=== PATIENT | male | born 1985 | race Caucasian/White ===

== ENCOUNTER 2020-03-04 14:36 | Emergency (ER) | payer OTHER ==
[~2020-03-04] VITALS: Ht 175.3 cm; Wt 64.9 kg
[~2020-03-04 14:36] MED LIST: CLON.1 PO; NICOTINE GUM2 MG PO; OLAN5 PO; PRAZ1 PO; ROXICODONE5 MG PO
[2020-03-04 15:19] LABS: BASOPHILS ABSOLUTE AUTO 0.04 K/mm3 (0.00-0.23); BASOPHILS PERCENT AUTO 1 % (0-2); EOSINOPHILS ABSOLUTE AUTO 0.06 K/mm3 (0.00-0.68); EOSINOPHILS PERCENT AUTO 1 % (0-6); Hematocrit 53.7 % (37.0-53.0); Hemoglobin 19.5 g/dL (13.5-17.5); IMMATURE GRAN ABSOLUTE AUTO 0.02 K/mm3 (0.00-0.10); IMMATURE GRAN PERCENT AUTO 0 % (0-1); LYMPHOCYTES ABSOLUTE AUTO 1.47 K/mm3 (0.84-5.20); LYMPHOCYTES PERCENT AUTO 22 % (21-46); MONOCYTES ABSOLUTE AUTO 0.56 K/mm3 (0.16-1.47); MONOCYTES PERCENT AUTO 8 % (4-13); Mean Corpuscular HGB 35.3 pg (26.0-34.0); Mean Corpuscular HGB Conc 36.3 g/dL (31.5-36.5); Mean Corpuscular Volume 97 fL (80-100); Mean Platelet Volume 9.4 fL (9.1-12.4); NEUTROPHILS ABSOLUTE AUTO 4.65 K/mm3 (1.96-9.15); NEUTROPHILS PERCENT AUTO 68 % (41-73); Platelet Count 214 K/mm3 (150-400); RDW Coefficient Variation 12.4 % (11.7-14.2); RDW Standard Deviation 44.5 fL (35.1-46.3); Red Blood Cell Count 5.53 M/mm3 (4.30-5.90)
[2020-03-04 15:40] LABS: Alanine Aminotransfer (ALT/SGP 152 U/L (12-78); Albumin, Blood 4.6 g/dL (3.4-5.0); Albumin/Globulin Ratio 1.4 (0.8-1.8); Alk Phos 161 U/L (50-136); Anion Gap 8 mmol/L (6-16); Aspartate Aminotrans (AST/SGOT 175 U/L (12-37); Bilirubin, Total 1.4 mg/dL (0.1-1.0); Blood Urea Nitrogen 4 mg/dL (8-24); Bun/Creatinine Ratio 6.7 (12.0-20.0); CO2, Blood 27 mmol/L (21-32); Calcium, Blood 9.7 mg/dL (8.5-10.1); Chloride, Blood 102 mmol/L (98-108); Globulin, Blood 3.4 g/dL (2.2-4.0); Glomerular Filtration Rate >60 (60-); Glucose, Blood 104 mg/dL (70-99); Potassium, Blood 3.8 mmol/L (3.5-5.5); Sodium, Blood 137 mmol/L (136-145)
[2020-03-04 16:23] LABS: Source, Urine Clean Catch
[2020-03-04 16:25] LABS: Bilirubin, Urine Neg (Neg); Blood, Urine Neg (Neg); Glucose Qualitative, Urine Neg (Neg); Ketones, Urine Neg (Neg); Leukocyte Esterase, Urine Neg (Neg); Nitrite, Urine Neg (Neg); Protein, Urine Neg (Neg); Urobilinogen, Urine NORM (Normal)
[2020-03-04 16:34] LABS: Appearance, Urine Clear (Clear); Color, Urine Yellow (P-Yellow)
[2020-03-04] MEDS ORDERED: ONDA4ODT MM (19:21)
[2020-03-04] MEDS ORDERED: Roxicodone5 MG PO (19:21)
== END 2020-03-04 19:28 | disposition home or self-care (01) ==
LOC: ER 14:36
PROVIDERS: Physician Assistant
DX: K85.90 Acute pancreatitis without necrosis or infection, unspecified (principal); F17.200 Nicotine dependence, unspecified, uncomplicated
CPT/HCPCS: 36415; 80053; 81003; 83690; 85025; 99284

== ENCOUNTER 2020-09-22 01:05 | Emergency (ER) | payer OTHER ==
[~2020-09-22] VITALS: Ht 167.6 cm; Wt 68.0 kg
[~2020-09-22 01:05] MED LIST changes: +ONDA4ODT MM; +Roxicodone5 MG PO
[2020-09-22 01:57] LABS: Alanine Aminotransfer (ALT/SGP 34 U/L (12-78); Albumin, Blood 4.1 g/dL (3.4-5.0); Alk Phos 144 U/L (50-136); Anion Gap 15 mmol/L (6-16); Aspartate Aminotrans (AST/SGOT 30 U/L (12-37); Bilirubin, Total 2.1 mg/dL (0.1-1.0); Blood Urea Nitrogen 50 mg/dL (8-24); Bun/Creatinine Ratio 33.1 (12.0-20.0); CO2, Blood 24 mmol/L (21-32); Calcium, Blood 9.3 mg/dL (8.5-10.1); Chloride, Blood 83 mmol/L (98-108); Creatinine, Blood 1.51 mg/dL (0.60-1.20); Ethanol (Alcohol), Blood, Med <3 mg/dL; Globulin, Blood 4.1 g/dL (2.2-4.0); Glomerular Filtration Rate 56 (60-); Glucose, Blood 97 mg/dL (70-99); Potassium, Blood 2.8 mmol/L (3.5-5.5); Sodium, Blood 122 mmol/L (136-145); Total Protein, Blood 8.2 g/dL (6.4-8.2)
[2020-09-22 02:10] LABS: BASOPHILS PERCENT AUTO 0 % (0-2); LYMPHOCYTES ABSOLUTE AUTO 0.97 K/mm3 (0.84-5.20); RDW Coefficient Variation 12.1 % (11.7-14.2); RDW Standard Deviation 42.2 fL (35.1-46.3)
[2020-09-22 02:11] LABS: BASOPHILS ABSOLUTE AUTO 0.04 K/mm3 (0.00-0.23); EOSINOPHILS ABSOLUTE AUTO 0.05 K/mm3 (0.00-0.68); EOSINOPHILS PERCENT AUTO 0 % (0-6); Hematocrit 46.3 % (37.0-53.0); Hemoglobin 17.4 g/dL (13.5-17.5); IMMATURE GRAN ABSOLUTE AUTO 0.05 K/mm3 (0.00-0.10); IMMATURE GRAN PERCENT AUTO 0 % (0-1); LYMPHOCYTES PERCENT AUTO 8 % (21-46); MONOCYTES ABSOLUTE AUTO 1.45 K/mm3 (0.16-1.47); MONOCYTES PERCENT AUTO 13 % (4-13); Mean Corpuscular HGB 35.2 pg (26.0-34.0); Mean Corpuscular HGB Conc 37.6 g/dL (31.5-36.5); Mean Corpuscular Volume 94 fL (80-100); Mean Platelet Volume 9.9 fL (9.1-12.4); NEUTROPHILS ABSOLUTE AUTO 8.93 K/mm3 (1.96-9.15); NEUTROPHILS PERCENT AUTO 78 % (41-73); Platelet Count 187 K/mm3 (150-400); Red Blood Cell Count 4.94 M/mm3 (4.30-5.90); White Blood Cell Count 11.49 K/mm3 (4.00-11.30)
[2020-09-22 02:22] LABS: Source, Urine Voided
[2020-09-22 02:33] LABS: Bilirubin, Urine Neg (Neg); Blood, Urine 1+ (Neg); Glucose Qualitative, Urine Neg (Neg); Ketones, Urine 2+ (Neg); Leukocyte Esterase, Urine 1+ (Neg); Nitrite, Urine Neg (Neg); Protein, Urine 2+ (Neg); Urobilinogen, Urine 1+ (Normal)
[2020-09-22 02:47] LABS: U Amphetamine Screen Not Detected; U Barbituate Screen Not Detected; U Benzodiazapine Screen Not Detected; U Buprenorphine Screen Not Detected; U Cannabinoids Screen DETECTED; U Cocaine Screen Not Detected; U Methadone Screen Not Detected; U Methamphetamine Screen Not Detected; U Opiates Screen Not Detected; U Oxycodone Screen DETECTED; U Phencyclidine Screen Not Detected; U Propoxyphene Screen Not Detected
[2020-09-22 02:49] LABS: Appearance, Urine Hazy (Clear); Color, Urine Yellow (P-Yellow)
[2020-09-22 02:51] LABS: Amorphous Mod (0-Heavy); Bacteria Few /hpf; Hyaline Casts 50-100 /lpf (0-2); Red Blood Cells, Urine Rare /hpf (0-2); Squamous Epithelial Cells Rare /hpf (Few)
[2020-09-22] MEDS ORDERED: Ondansetron Odt8 MG MM (03:35)
[2020-09-22] MEDS ORDERED: Protonix40 MG PO (03:35)
== END 2020-09-22 04:00 | disposition home or self-care (01) ==
LOC: ER 01:05
PROVIDERS: Emergency Medicine
DX: K85.20 Alcohol induced acute pancreatitis without necrosis or infection (principal); E87.1 Hypo-osmolality and hyponatremia; F17.200 Nicotine dependence, unspecified, uncomplicated; Z79.899 Other long term (current) drug therapy
CPT/HCPCS: 76705; 80053; 81001; 83605; 83690; 85025; 87086; 93005; 93010; 96374; 96375; 99284-25; C9113; G0480; J1885; J2405; J7030

== ENCOUNTER 2021-11-06 12:19 | Inpatient (IN) | payer OTHER ==
[~2021-11-06] VITALS: Ht 172.7 cm; Wt 57.5 kg
[~2021-11-06 12:19] MED LIST changes: +Ondansetron Odt8 MG MM; +Protonix40 MG PO
[2021-11-06 13:41] LABS: Bilirubin, Total 1.7 mg/dL (0.1-1.0); Bun/Creatinine Ratio 13.7 (12.0-20.0); Calcium, Blood 9.5 mg/dL (8.5-10.1); Creatinine, Blood 3.28 mg/dL (0.60-1.20); Potassium, Blood 4.1 mmol/L (3.5-5.5)
[2021-11-06 13:42] LABS: BASOPHILS ABSOLUTE AUTO 0.05 K/mm3 (0.00-0.23); BASOPHILS PERCENT AUTO 0 % (0-2); EOSINOPHILS ABSOLUTE AUTO 0.01 K/mm3 (0.00-0.68); EOSINOPHILS PERCENT AUTO 0 % (0-6); Hematocrit 48.7 % (37.0-53.0); IMMATURE GRAN ABSOLUTE AUTO 0.16 K/mm3 (0.00-0.10); IMMATURE GRAN PERCENT AUTO 1 % (0-1); LYMPHOCYTES ABSOLUTE AUTO 1.21 K/mm3 (0.84-5.20); LYMPHOCYTES PERCENT AUTO 7 % (21-46); MONOCYTES ABSOLUTE AUTO 1.22 K/mm3 (0.16-1.47); MONOCYTES PERCENT AUTO 7 % (4-13); Mean Platelet Volume 10.1 fL (9.1-12.4); NEUTROPHILS ABSOLUTE AUTO 14.89 K/mm3 (1.96-9.15); NEUTROPHILS PERCENT AUTO 85 % (41-73); Platelet Count 251 K/mm3 (150-400); RDW Coefficient Variation 12.3 % (11.7-14.2); RDW Standard Deviation 42.5 fL (35.1-46.3); White Blood Cell Count 17.54 K/mm3 (4.00-11.30)
[2021-11-06 14:08] LABS: Hemoglobin 19.5 g/dL (13.5-17.5)
[2021-11-06 14:09] LABS: Mean Corpuscular HGB 34.8 pg (26.0-34.0); Mean Corpuscular HGB Conc 36.4 g/dL (31.5-36.5); Mean Corpuscular Volume 96 fL (80-100)
[2021-11-06 14:42] LABS: Source, Urine Clean Catch
[2021-11-06] MEDS ORDERED: TRAZ100 PO (15:24)
[2021-11-06 15:26] LABS: Appearance, Urine Hazy (Clear); Blood, Urine 1+ (Neg); Color, Urine Yellow (P-Yellow); Glucose Qualitative, Urine Neg (Neg); Ketones, Urine 1+ (Neg); Leukocyte Esterase, Urine Neg (Neg); Nitrite, Urine Neg (Neg); Protein, Urine 2+ (Neg); Urobilinogen, Urine 1+ (Normal)
[2021-11-06 16:02] LABS: Bilirubin, Urine 1+ (Neg)
[2021-11-06 16:11] LABS: Amorphous Light (0-Heavy); Bacteria Mod /hpf; Mucus Light (0-Heavy); Squamous Epithelial Cells Few /hpf (Few)
[2021-11-06 20:07] LABS: U Amphetamine Screen Not Detected; U Barbituate Screen Not Detected; U Benzodiazapine Screen Not Detected; U Buprenorphine Screen Not Detected; U Cannabinoids Screen DETECTED; U Cocaine Screen Not Detected; U Methadone Screen Not Detected; U Methamphetamine Screen Not Detected; U Opiates Screen Not Detected; U Oxycodone Screen Not Detected; U Phencyclidine Screen Not Detected; U Propoxyphene Screen Not Detected
--- NOTE | 2021-11-06 22:37 | NUR ---
RN TO RN PATIENT TRANSFER. REPORT TAKEN FROM IQRA GOMEZ.
--- NOTE | 2021-11-07 04:50 | NUR ---
SHIFT SUMMARY PATIENT HAD NO ACUTE CHANGES. AXOX 4 AND INDEPENDENT IN ROOM. UP FOR SHOWER THIS SHIFT. PIV REMAINS INTACT. NS INFUSING AT 200 mL/HR. NPO EXCEPT WATER OR ICE CHIPS ONLY. CIWA SCORE 1-2. HX HEAVY ETOH REPORTING 12-19 BEERS/DAY. HYPERTENSIVE. REPORTED EPIGASTRIC PAIN RUQ AND PERCOCET 5 MG GIVEN PER EMAR. DENIES CHEST PAIN, SOB, AND N/V. AFEBRILE. COOPERATIVE WITH CARE. CALL LIGHT IN REACH. BED IN LOWEST POSITION. WILL CONTINUE TO MONITOR UNTIL DAY SHIFT NURSE ASSUMES CARE.
[2021-11-07 05:33] LABS: BASOPHILS ABSOLUTE AUTO 0.02 K/mm3 (0.00-0.23); BASOPHILS PERCENT AUTO 0 % (0-2); EOSINOPHILS ABSOLUTE AUTO 0.03 K/mm3 (0.00-0.68); EOSINOPHILS PERCENT AUTO 0 % (0-6); Hematocrit 43.5 % (37.0-53.0); Hemoglobin 15.8 g/dL (13.5-17.5); IMMATURE GRAN ABSOLUTE AUTO 0.07 K/mm3 (0.00-0.10); IMMATURE GRAN PERCENT AUTO 1 % (0-1); LYMPHOCYTES ABSOLUTE AUTO 0.92 K/mm3 (0.84-5.20); LYMPHOCYTES PERCENT AUTO 9 % (21-46); MONOCYTES ABSOLUTE AUTO 1.08 K/mm3 (0.16-1.47); MONOCYTES PERCENT AUTO 11 % (4-13); Mean Corpuscular HGB 35.2 pg (26.0-34.0); Mean Corpuscular HGB Conc 36.3 g/dL (31.5-36.5); Mean Corpuscular Volume 97 fL (80-100); Mean Platelet Volume 9.7 fL (9.1-12.4); NEUTROPHILS ABSOLUTE AUTO 7.85 K/mm3 (1.96-9.15); NEUTROPHILS PERCENT AUTO 79 % (41-73); Platelet Count 196 K/mm3 (150-400); RDW Coefficient Variation 12.4 % (11.7-14.2); RDW Standard Deviation 44.5 fL (35.1-46.3); Red Blood Cell Count 4.49 M/mm3 (4.30-5.90); White Blood Cell Count 9.97 K/mm3 (4.00-11.30)
[2021-11-07 06:38] LABS: Albumin, Blood 3.2 g/dL (3.4-5.0); Bilirubin, Total 1.5 mg/dL (0.1-1.0); Bun/Creatinine Ratio 23.1 (12.0-20.0); Calcium, Blood 8.1 mg/dL (8.5-10.1); Creatinine, Blood 1.17 mg/dL (0.60-1.20); Globulin, Blood 3.3 g/dL (2.2-4.0); Magnesium, Blood 1.6 mg/dL (1.6-2.4); Potassium, Blood 3.7 mmol/L (3.5-5.5); Total Protein, Blood 6.5 g/dL (6.4-8.2)
[2021-11-07] MEDS ORDERED: B-1100 M1 PO (14:52)
[2021-11-07] MEDS ORDERED: FOLI1 PO (14:52)
[2021-11-07] MEDS ORDERED: Hair, Skin & N1 EACH PO (14:52)
--- NOTE | 2021-11-07 16:08 | NUR ---
DC SUMMARY PT AxOx4. COOPERATIVE WITH CARE. PT DISCHARGING HOME WITH FAMILY MEMBER. PT SPOKE WITH MEAT PASSER THIS SHIFT TO ORGANIZE GETTING HIM INTO REHAB SOON. PT STATES THIS IS ALL IN THE WORKS AND HE IS READY TO GO SOON THEY GET A BED AVAILABLE. PT GIVEN DC INSTRUCTIONS, INCLUDING DC MEDICATIONS, FOLLOW UP INSTRUCTIONS AND PATIENT EDUCATION. PT VERBALIZES UNDERSTANDING. DENIES ANY FURTHER QUESTIONS AT THIS TIME. PT SAFELY ESCORTED OUT WITH FABRIC AWNING REPAIRER.
== END 2021-11-07 15:36 | disposition home or self-care (01) | DRG 682 ==
LOC: ER 12:19 → MEDS 18:31
PROVIDERS: Nurse Practitioner Acute Care; Physician Assistant; ADMIT Internal Medicine
PROC: HZ2ZZZZ Detoxification Services for Substance Abuse Treatment (ICD-10-PCS; principal; 2021-11-06)
DX: N17.9 Acute kidney failure, unspecified (principal); K85.20 Alcohol induced acute pancreatitis without necrosis or infection; E87.1 Hypo-osmolality and hyponatremia; R65.10 Systemic inflammatory response syndrome (SIRS) of non-infectious origin without acute organ dysfunction; F32.A Depression, unspecified; F10.20 Alcohol dependence, uncomplicated; E86.0 Dehydration; F17.210 Nicotine dependence, cigarettes, uncomplicated; K21.9 Gastro-esophageal reflux disease without esophagitis; R11.2 Nausea with vomiting, unspecified; Z79.899 Other long term (current) drug therapy
CPT/HCPCS: 36415; 51798; 71045; 74177; 80053; 81001; 83605; 83690; 83735; 85025; 87086; 96361; 96374; 96375; 96376; 99285-25; A9270; J0360; J1644; J1885; J2405; J7030; Q9967

== ENCOUNTER 2021-11-17 19:36 | Inpatient (IN) | payer OTHER ==
[~2021-11-17] VITALS: Ht 172.7 cm; Wt 59.7 kg
[~2021-11-17 19:36] MED LIST changes: +B-1100 M1 PO; +FOLI1 PO; +Hair, Skin & N1 EACH PO; +TRAZ100 PO
[2021-11-17 20:41] LABS: Hematocrit 48.3 % (37.0-53.0); Hemoglobin 16.8 g/dL (13.5-17.5); Mean Corpuscular HGB 34.9 pg (26.0-34.0); Mean Corpuscular HGB Conc 34.8 g/dL (31.5-36.5); Mean Corpuscular Volume 100 fL (80-100); Red Blood Cell Count 4.82 M/mm3 (4.30-5.90); White Blood Cell Count 22.48 K/mm3 (4.00-11.30)
[2021-11-17 20:42] LABS: BASOPHILS PERCENT AUTO 0 % (0-2); EOSINOPHILS ABSOLUTE AUTO 0.02 K/mm3 (0.00-0.68); EOSINOPHILS PERCENT AUTO 0 % (0-6); IMMATURE GRAN ABSOLUTE AUTO 0.14 K/mm3 (0.00-0.10); IMMATURE GRAN PERCENT AUTO 1 % (0-1); LYMPHOCYTES PERCENT AUTO 4 % (21-46); MONOCYTES ABSOLUTE AUTO 0.85 K/mm3 (0.16-1.47); MONOCYTES PERCENT AUTO 4 % (4-13); Mean Platelet Volume 9.6 fL (9.1-12.4); NEUTROPHILS ABSOLUTE AUTO 20.37 K/mm3 (1.96-9.15); NEUTROPHILS PERCENT AUTO 91 % (41-73); Platelet Count 298 K/mm3 (150-400); RDW Coefficient Variation 12.8 % (11.7-14.2); RDW Standard Deviation 47.2 fL (35.1-46.3)
[2021-11-17 22:01] LABS: Albumin, Blood 4.1 g/dL (3.4-5.0); Albumin/Globulin Ratio 1.1 (0.8-1.8); Bilirubin, Total 0.9 mg/dL (0.1-1.0); Bun/Creatinine Ratio 10.6 (12.0-20.0); Calcium, Blood 9.8 mg/dL (8.5-10.1); Creatinine, Blood 0.57 mg/dL (0.60-1.20); Globulin, Blood 3.9 g/dL (2.2-4.0); Potassium, Blood 4.2 mmol/L (3.5-5.5)
[2021-11-18 02:23] LABS: Source, Urine Clean Catch
[2021-11-18 02:26] LABS: Bilirubin, Urine Neg (Neg); Blood, Urine Neg (Neg); Glucose Qualitative, Urine 1+ (Neg); Ketones, Urine 1+ (Neg); Leukocyte Esterase, Urine Neg (Neg); Nitrite, Urine Neg (Neg); Protein, Urine 1+ (Neg); Urobilinogen, Urine NORM (Normal)
[2021-11-18 02:31] LABS: Appearance, Urine Clear (Clear); Color, Urine Yellow (P-Yellow)
[2021-11-18 03:44] LABS: BASOPHILS ABSOLUTE AUTO 0.07 K/mm3 (0.00-0.23); BASOPHILS PERCENT AUTO 0 % (0-2); EOSINOPHILS ABSOLUTE AUTO 0.03 K/mm3 (0.00-0.68); EOSINOPHILS PERCENT AUTO 0 % (0-6); IMMATURE GRAN ABSOLUTE AUTO 0.14 K/mm3 (0.00-0.10); IMMATURE GRAN PERCENT AUTO 1 % (0-1); LYMPHOCYTES ABSOLUTE AUTO 1.08 K/mm3 (0.84-5.20); LYMPHOCYTES PERCENT AUTO 6 % (21-46); MONOCYTES ABSOLUTE AUTO 0.76 K/mm3 (0.16-1.47); MONOCYTES PERCENT AUTO 4 % (4-13); Mean Corpuscular HGB 34.9 pg (26.0-34.0); Mean Corpuscular HGB Conc 35.6 g/dL (31.5-36.5); Mean Corpuscular Volume 98 fL (80-100); Mean Platelet Volume 9.2 fL (9.1-12.4); NEUTROPHILS ABSOLUTE AUTO 15.02 K/mm3 (1.96-9.15); NEUTROPHILS PERCENT AUTO 88 % (41-73); Platelet Count 310 K/mm3 (150-400); RDW Coefficient Variation 12.5 % (11.7-14.2); RDW Standard Deviation 45.2 fL (35.1-46.3); Red Blood Cell Count 4.59 M/mm3 (4.30-5.90)
[2021-11-18 04:02] LABS: CHOL/HDL RATIO 2.5; Cholesterol 148 mg/dL (50-200); HDL Cholesterol 60 mg/dL (>39); LDL/HDL RATIO 1.2; Low Density Lipoprotein Chol 73 mg/dL (0-110); Triglycerides 76 mg/dL (30-140); Very Low Density Lipoprot Chol 15 mg/dL (6-28)
[2021-11-18 04:11] LABS: Albumin, Blood 3.7 g/dL (3.4-5.0); Albumin/Globulin Ratio 1.1 (0.8-1.8); Bilirubin, Total 1.1 mg/dL (0.1-1.0); Bun/Creatinine Ratio 13.6 (12.0-20.0); Calcium, Blood 9.3 mg/dL (8.5-10.1); Creatinine, Blood 0.52 mg/dL (0.60-1.20); Globulin, Blood 3.4 g/dL (2.2-4.0); Potassium, Blood 4.2 mmol/L (3.5-5.5); Total Protein, Blood 7.1 g/dL (6.4-8.2)
--- NOTE | 2021-11-18 06:02 | NUR ---
SHIFT SUMMARY ASSUMED CARE OF PT HEIDI 0300. PT IS A/OX4. HEART SOUNDS REGULAR. LUNG SOUNDS DIMINISHED AT BASES. PT STATES HE SMOKES 2 PACKS A DAY. PT C/O ABD PAIN BUT STATES THAT DOCTOR SAID HE CAN DRINK WATER. PT EDUCATED ABOUT HOW THIS WILL MAKE HIS PAIN WORSE AND PT STATES "BUT MY STOMACH HURTS AND SIPPING ON WATER HELPS IT BECAUSE I HAVENT EATEN ALL DAY". PT HAS SLEPT THE REST OF THE MORNING AFTER RECEIVING DILAUDID WHICH HE STATES "IS THE ONLY THING THAT WILL HELP WITH HIS PAIN".
--- NOTE | 2021-11-18 08:00 | NUR ---
DURING MORNING MEDICATION PASS PT ATTEMPTS TO VIDEO THIS RN GIVING HIS INJECTON, HIS REQUEST IS DENIED, PT DEMANDED TO KNOW WHY THIS RN WILL NOT ALLOW HIM TO FILM HER, HE WAS THOROUGHLY EDUCATED ON THE MATTER.
--- NOTE | 2021-11-18 09:30 | NUR ---
PT IS MEDICATED WITH 2MG DILAUDID IVP FOR CONTINUED REPORTED PAIN OF 7/10, PT STS THAT PAIN IS UNCHANGED WITH MEDICATION ADMINISTRATION. PT REPORTS 7/10 PAIN HE IS LYING RECOMBINANT WITH LEGS CROSSED, HE APPEARS FREE OF DISTRESS NOT GUARDING, NO GRIMACING NOTED. UPON ADMINISTRATION OF DILAUDID VIA SLOW PUSH PT STS "YOU NEED TO GIVE IT A LITTLE BIT FASTER SO IT HITS ME BETTER" PT IS EDUCATED THAT DILAUDID SHOULD NOT BE PUSHED FAST, PT AGAIN ENCOURAGED A FASTER RATE WHICH AGAIN WAS DENIED.
--- NOTE | 2021-11-18 11:00 | NUR ---
THIS RN SPOKE WITH PT'S LEGAL GUARDIAN FUNMILAYO, PER FUNMILAYO ALL MEDICATION CHANGES NEED TO BE APPROVED THROUGH HER PRIOR TO BEING CARRIED OUT. SHE EXPRESSED CONCERN THAT PT IS RECIEVING NARCOTIC PAIN MEDICATION FOR PANCREATITIS HE IS AN ALCOHOLIC, SHE IS EDUCATED THOROUGHLY ABOUT THE USE OF NARCOTICS BEING USED APPROPRIATELY FOR PT'S IN EXTREME PAIN, SHE EXPRESSED OTHER CONCERNS THAT PT WOULD BE ALLOWED TO ABUSE PAIN MEDICATION HERE, SHE IS AGAIN EDUCATED ABOUT THAT. LOLA MELLO PT HAS A BED AT [facility] "WHEN MEDICALLY STABLE", BUT SHE IS CURRENTLY WAITING FOR PT'S INSURANCE TO APPROVE HIS ADMISSION TO [facility]. FUNMILAYO ALSO STS THAT UPON D/C FROM HOSPITAL THAT SHE WILL PROVIDE TRANSPORT TO [place] FOR PT AND WILL PUT HIM UP IN A HOTEL UNTIL HE IS ABLE TO GO TO [facility].
--- NOTE | 2021-11-18 17:00 | NUR ---
SHIFT SUMMARY PATIENT TRANSFERRED FROM PCU AT 1550. PATIENT SETTLED INTO ROOM. PATIENT ORIENTED TO CALL LIGHT AND PHONE IN NEW ROOM. PATIENT MEDICATED X1 FOR PAIN. X1 FOR NAUSEA. PATIENT DENIES SHORTNESS OF BREATH. PATIENT REPORTS PAIN IS STARTING TO GET BETTER. PATIENT SHOWED INTEREST IN STARTING TO EAT. PATIENT BP ELEVATED, MEDICATED X1, RECHECK SHOWED MEDICATION WAS EFFECTIVE. PATIENT HAS SOME PRESSURED SPEECH. PATIENT IS PLEASANT AND COOPERATIVE WITH CARE.
--- NOTE | 2021-11-19 05:18 | NUR ---
SHIFT SUMMARY PT APPEARS TO BE IMPROVING. MEDICATED X 1 AT START OF SHIFT FOR ABD DISCOMFORT IN UPPER MID ABD. PT HAS DENIED ANY NAUSEA. REQUESTED TO ADVANCE DIET. FIRST EATING A JELLO, THEN SHORTLY AFTER A PUDDING AND TOLERATED WELL WITH NO ADDITIONAL PAIN OR NAUSEA. CIWA'S 8 AT START OF SHIFT, PT VERY ITCHY AND ANXIOUS. BETTER THIS MORNING, ONLY AT 3. PT SLEPT MUCH OF THE EVENING. VITAL SIGNS STABLE.
[2021-11-19 08:40] LABS: BASOPHILS ABSOLUTE AUTO 0.07 K/mm3 (0.00-0.23); BASOPHILS PERCENT AUTO 1 % (0-2); EOSINOPHILS ABSOLUTE AUTO 0.11 K/mm3 (0.00-0.68); EOSINOPHILS PERCENT AUTO 1 % (0-6); Hematocrit 38.8 % (37.0-53.0); Hemoglobin 13.7 g/dL (13.5-17.5); IMMATURE GRAN ABSOLUTE AUTO 0.02 K/mm3 (0.00-0.10); IMMATURE GRAN PERCENT AUTO 0 % (0-1); LYMPHOCYTES ABSOLUTE AUTO 1.27 K/mm3 (0.84-5.20); LYMPHOCYTES PERCENT AUTO 17 % (21-46); MONOCYTES ABSOLUTE AUTO 0.41 K/mm3 (0.16-1.47); MONOCYTES PERCENT AUTO 5 % (4-13); Mean Corpuscular HGB 34.8 pg (26.0-34.0); Mean Corpuscular HGB Conc 35.3 g/dL (31.5-36.5); Mean Corpuscular Volume 99 fL (80-100); NEUTROPHILS ABSOLUTE AUTO 5.72 K/mm3 (1.96-9.15); NEUTROPHILS PERCENT AUTO 75 % (41-73); Platelet Count 187 K/mm3 (150-400); RDW Coefficient Variation 12.3 % (11.7-14.2); RDW Standard Deviation 44.5 fL (35.1-46.3); Red Blood Cell Count 3.94 M/mm3 (4.30-5.90)
[2021-11-19 09:06] LABS: Albumin, Blood 2.8 g/dL (3.4-5.0); Albumin/Globulin Ratio 0.8 (0.8-1.8); Bilirubin, Direct 0.4 mg/dL (0.0-0.3); Bilirubin, Indirect 0.6 mg/dL (0.1-0.7); Bun/Creatinine Ratio 8.9 (12.0-20.0); Calcium, Blood 8.6 mg/dL (8.5-10.1); Creatinine, Blood 0.56 mg/dL (0.60-1.20); Globulin, Blood 3.3 g/dL (2.2-4.0); Potassium, Blood 3.9 mmol/L (3.5-5.5); Total Protein, Blood 6.1 g/dL (6.4-8.2)
[2021-11-19 15:01] LABS: Source, Urine Clean Catch
[2021-11-19 15:59] LABS: Appearance, Urine Clear (Clear); Blood, Urine Neg (Neg); Color, Urine Yellow (P-Yellow); Glucose Qualitative, Urine 1+ (Neg); Ketones, Urine 1+ (Neg); Leukocyte Esterase, Urine Neg (Neg); Nitrite, Urine Neg (Neg); Protein, Urine Neg (Neg); Urobilinogen, Urine 4+ (Normal)
[2021-11-19 16:16] LABS: Bilirubin, Urine 1+ (Neg)
--- NOTE | 2021-11-19 18:42 | NUR ---
SHIFT SUMMARY PATIENT MEDICATED FOR PAIN X3. PATIENT MEDICATED PER CIWA PROTOCOL X2. PATIENT MEDICATED FOR NAUSEA X1. PATIENT DENIES SHORTNESS OF BREATH. PATIENT IS IND IN ROOM. PATIENT TOLERATED PO INTAKE, LOW FIBER, LOW FAT DIET. PATIENT EATING AND DRINKING WELL. UA SENT. POSSIBLE DISCHARGE TOMORROW. PATIENT IS PLEASANT AND COOPERATIVE WITH CARE.
[2021-11-20 05:05] LABS: BASOPHILS ABSOLUTE AUTO 0.04 K/mm3 (0.00-0.23); BASOPHILS PERCENT AUTO 1 % (0-2); EOSINOPHILS ABSOLUTE AUTO 0.08 K/mm3 (0.00-0.68); EOSINOPHILS PERCENT AUTO 1 % (0-6); Hematocrit 38.6 % (37.0-53.0); Hemoglobin 13.5 g/dL (13.5-17.5); IMMATURE GRAN ABSOLUTE AUTO 0.01 K/mm3 (0.00-0.10); IMMATURE GRAN PERCENT AUTO 0 % (0-1); LYMPHOCYTES ABSOLUTE AUTO 1.13 K/mm3 (0.84-5.20); LYMPHOCYTES PERCENT AUTO 20 % (21-46); MONOCYTES ABSOLUTE AUTO 0.38 K/mm3 (0.16-1.47); MONOCYTES PERCENT AUTO 7 % (4-13); Mean Corpuscular HGB 34.7 pg (26.0-34.0); Mean Corpuscular Volume 99 fL (80-100); Mean Platelet Volume 9.6 fL (9.1-12.4); NEUTROPHILS PERCENT AUTO 71 % (41-73); Platelet Count 219 K/mm3 (150-400); RDW Coefficient Variation 12.7 % (11.7-14.2); RDW Standard Deviation 46.1 fL (35.1-46.3); Red Blood Cell Count 3.89 M/mm3 (4.30-5.90); White Blood Cell Count 5.74 K/mm3 (4.00-11.30)
[2021-11-20 05:29] LABS: Albumin, Blood 2.8 g/dL (3.4-5.0); Albumin/Globulin Ratio 0.9 (0.8-1.8); Bilirubin, Total 0.6 mg/dL (0.1-1.0); Creatinine, Blood 0.54 mg/dL (0.60-1.20); Potassium, Blood 3.4 mmol/L (3.5-5.5); Total Protein, Blood 5.8 g/dL (6.4-8.2)
[2021-11-20] MEDS ORDERED: Norco 5-325 Ta1 EACH PO (08:39)
[2021-11-20] MEDS ORDERED: XARELTO20 MG PO ×2 (08:39)
[2021-11-20 09:11] LABS: HBSAG SCREEN Negative (Negative); HCV AB 0.1 (0.0-0.9); HEP B CORE AB, TOT Negative (Negative)
[2021-11-20 09:11] LABS: HIV AB/P24 AG SCREEN Non Reactive (Non Reactive)
--- NOTE | 2021-11-20 14:51 | NUR ---
PT AMBULATORY IN RM AND OUT IN HALLS. PT ANXIOUS AND CURSING AT START OF SHIFT. C/O ABD PAIN; MEDICATED PER EMAR. PT TO GO TO [facility] ON MONDAY. DR CARDENAS HERE THIS AM TO SEE PT AND LATER DR Shanice FARIAS. D/C ORDERS PLACED. GUARDIAN HERE AT 11:00 TO P/U PT. MEDS FAXED TO [facility]. D/C INSTRUCTIONS REVIEWED WITH PT AND GUARDIAN'S; VERBALIZED UNDERSTANDING. IV SITE D/C'D BY DEBBIE RNREGINE. DENIED FURTHER NEEDS.
[2022-01-02] MEDS ORDERED: Naltrexone HCl50 MG PO (20:18)
[2022-01-02] MEDS ORDERED: ONDA4ODT MM (20:18)
[2022-01-02] MEDS ORDERED: Roxicodone5 MG PO (20:18)
== END 2021-11-20 11:18 | disposition home or self-care (01) | DRG 438 ==
LOC: ER 19:36 → MEDS 11-18 01:11 → PCU 11-18 01:11 → MEDS 11-18 15:55
PROVIDERS: Family Medicine; Student in an Organized Health Care Education/Training Program; ADMIT Internal Medicine
DX: K85.20 Alcohol induced acute pancreatitis without necrosis or infection (principal); I81 Portal vein thrombosis; K55.059 Acute (reversible) ischemia of intestine, part and extent unspecified; K86.3 Pseudocyst of pancreas; R65.10 Systemic inflammatory response syndrome (SIRS) of non-infectious origin without acute organ dysfunction; F32.A Depression, unspecified; F17.210 Nicotine dependence, cigarettes, uncomplicated; K21.9 Gastro-esophageal reflux disease without esophagitis; F10.20 Alcohol dependence, uncomplicated; K86.1 Other chronic pancreatitis; I10 Essential (primary) hypertension; Z91.030 Bee allergy status; Z91.038 Other insect allergy status
CPT/HCPCS: 36415; 74177; 80053; 80061; 81003; 82248; 83690; 85025; 86704; 86708; 86803; 87340; 87389; 96374-59; 96375; 96376; 99285-25; A9270; J0360; J1170; J1650; J1885; J2270; J2405; J3010; J7030; J7120; Q9967

== ENCOUNTER 2021-12-14 16:20 | Emergency (ER) | payer OTHER ==
[~2021-12-14] VITALS: Ht 175.3 cm; Wt 61.2 kg
[~2021-12-14 16:20] MED LIST changes: +Norco 5-325 Ta1 EACH PO; +XARELTO20 MG PO
[2021-12-14 17:36] LABS: BASOPHILS ABSOLUTE AUTO 0.07 K/mm3 (0.00-0.23); BASOPHILS PERCENT AUTO 1 % (0-2); EOSINOPHILS ABSOLUTE AUTO 0.24 K/mm3 (0.00-0.68); EOSINOPHILS PERCENT AUTO 2 % (0-6); Hemoglobin 13.8 g/dL (13.5-17.5); IMMATURE GRAN ABSOLUTE AUTO 0.03 K/mm3 (0.00-0.10); IMMATURE GRAN PERCENT AUTO 0 % (0-1); LYMPHOCYTES ABSOLUTE AUTO 1.77 K/mm3 (0.84-5.20); LYMPHOCYTES PERCENT AUTO 16 % (21-46); MONOCYTES PERCENT AUTO 6 % (4-13); Mean Corpuscular HGB 33.4 pg (26.0-34.0); Mean Corpuscular HGB Conc 36.3 g/dL (31.5-36.5); Mean Corpuscular Volume 92 fL (80-100); Mean Platelet Volume 9.1 fL (9.1-12.4); NEUTROPHILS PERCENT AUTO 75 % (41-73); Platelet Count 358 K/mm3 (150-400); RDW Coefficient Variation 11.9 % (11.7-14.2); RDW Standard Deviation 40.6 fL (35.1-46.3); Red Blood Cell Count 4.13 M/mm3 (4.30-5.90); White Blood Cell Count 10.91 K/mm3 (4.00-11.30)
[2021-12-14 17:53] LABS: Albumin, Blood 3.5 g/dL (3.4-5.0); Albumin/Globulin Ratio 1.1 (0.8-1.8); Bilirubin, Total 0.3 mg/dL (0.1-1.0); Bun/Creatinine Ratio 8.8 (12.0-20.0); Calcium, Blood 9.5 mg/dL (8.5-10.1); Creatinine, Blood 0.57 mg/dL (0.60-1.20); Globulin, Blood 3.3 g/dL (2.2-4.0); Potassium, Blood 3.8 mmol/L (3.5-5.5); Total Protein, Blood 6.8 g/dL (6.4-8.2)
[2021-12-14] MEDS ORDERED: AMLODIPINE BESYL5 MG PO (21:21)
[2021-12-14] MEDS ORDERED: FOLI1 PO (21:21)
[2021-12-14] MEDS ORDERED: METOPROLOL TART50 M9 PO (21:21)
[2021-12-14] MEDS ORDERED: ONDA4ODT SL (21:36)
[2021-12-14] MEDS ORDERED: Percocet 5-3251 EACH PO (21:36)
== END 2021-12-14 22:22 | disposition home or self-care (01) ==
LOC: ER 16:20
PROVIDERS: Physician Assistant
DX: R10.13 Epigastric pain (principal); R11.2 Nausea with vomiting, unspecified; F17.210 Nicotine dependence, cigarettes, uncomplicated; Z91.030 Bee allergy status; Z79.899 Other long term (current) drug therapy
CPT/HCPCS: 74177; 80053; 83690; 85025; A9270; J2405; Q9967

== ENCOUNTER 2021-12-20 18:24 | Emergency (ER) | payer OTHER ==
[~2021-12-20] VITALS: Ht 175.3 cm; Wt 61.2 kg
[~2021-12-20 18:24] MED LIST changes: +AMLODIPINE BESYL5 MG PO; +METOPROLOL TART50 M9 PO; +ONDA4ODT SL; +Percocet 5-3251 EACH PO
[2021-12-20 18:54] LABS: BASOPHILS ABSOLUTE AUTO 0.06 K/mm3 (0.00-0.23); BASOPHILS PERCENT AUTO 1 % (0-2); EOSINOPHILS ABSOLUTE AUTO 0.16 K/mm3 (0.00-0.68); EOSINOPHILS PERCENT AUTO 1 % (0-6); Hematocrit 42.5 % (37.0-53.0); Hemoglobin 14.8 g/dL (13.5-17.5); IMMATURE GRAN ABSOLUTE AUTO 0.04 K/mm3 (0.00-0.10); IMMATURE GRAN PERCENT AUTO 0 % (0-1); LYMPHOCYTES ABSOLUTE AUTO 1.78 K/mm3 (0.84-5.20); LYMPHOCYTES PERCENT AUTO 15 % (21-46); MONOCYTES ABSOLUTE AUTO 0.61 K/mm3 (0.16-1.47); MONOCYTES PERCENT AUTO 5 % (4-13); Mean Corpuscular HGB 32.3 pg (26.0-34.0); Mean Corpuscular HGB Conc 34.8 g/dL (31.5-36.5); Mean Corpuscular Volume 93 fL (80-100); Mean Platelet Volume 9.1 fL (9.1-12.4); NEUTROPHILS ABSOLUTE AUTO 9.03 K/mm3 (1.96-9.15); NEUTROPHILS PERCENT AUTO 77 % (41-73); Platelet Count 346 K/mm3 (150-400); RDW Coefficient Variation 11.9 % (11.7-14.2); RDW Standard Deviation 40.8 fL (35.1-46.3); Red Blood Cell Count 4.58 M/mm3 (4.30-5.90); White Blood Cell Count 11.68 K/mm3 (4.00-11.30)
[2021-12-20 18:55] LABS: Source, Urine Clean Catch
[2021-12-20 19:00] LABS: Appearance, Urine Clear (Clear); Bilirubin, Urine Neg (Neg); Blood, Urine Neg (Neg); Color, Urine Yellow (P-Yellow); Glucose Qualitative, Urine Neg (Neg); Ketones, Urine Neg (Neg); Leukocyte Esterase, Urine 1+ (Neg); Nitrite, Urine Neg (Neg); Protein, Urine 1+ (Neg); Urobilinogen, Urine 2+ (Normal)
[2021-12-20 19:15] LABS: Bacteria Few /hpf; Granular Casts 0-2 /lpf (0); Red Blood Cells, Urine 0-2 /hpf (0-2); Squamous Epithelial Cells Not Seen /hpf (Few); White Blood Cells, Urine 0-2 /hpf (0-5)
[2021-12-20 19:20] LABS: Albumin, Blood 3.4 g/dL (3.4-5.0); Bilirubin, Total 0.5 mg/dL (0.1-1.0); Bun/Creatinine Ratio 3.2 (12.0-20.0); Calcium, Blood 8.8 mg/dL (8.5-10.1); Creatinine, Blood 0.63 mg/dL (0.60-1.20); Globulin, Blood 3.5 g/dL (2.2-4.0); Potassium, Blood 3.3 mmol/L (3.5-5.5); Total Protein, Blood 6.9 g/dL (6.4-8.2)
[2021-12-20] MEDS ORDERED: OXYC5 PO (21:20)
== END 2021-12-20 21:47 | disposition home or self-care (01) ==
LOC: ER 18:24
PROVIDERS: Physician Assistant
DX: K85.90 Acute pancreatitis without necrosis or infection, unspecified (principal); E87.6 Hypokalemia; K21.9 Gastro-esophageal reflux disease without esophagitis; F17.210 Nicotine dependence, cigarettes, uncomplicated; Z79.899 Other long term (current) drug therapy; Z79.01 Long term (current) use of anticoagulants; Z91.038 Other insect allergy status
CPT/HCPCS: 36415; 80053; 81001; 83690; 85025; A9270; J2270; J2405; J7030; J7120

== ENCOUNTER 2021-12-22 14:28 | Emergency (ER) | payer OTHER ==
[~2021-12-22] VITALS: Ht 172.7 cm; Wt 61.2 kg
[~2021-12-22 14:28] MED LIST changes: +OXYC5 PO
[2021-12-22 14:57] LABS: BASOPHILS ABSOLUTE AUTO 0.05 K/mm3 (0.00-0.23); BASOPHILS PERCENT AUTO 0 % (0-2); EOSINOPHILS ABSOLUTE AUTO 0.08 K/mm3 (0.00-0.68); EOSINOPHILS PERCENT AUTO 0 % (0-6); Hematocrit 48.7 % (37.0-53.0); Hemoglobin 17.3 g/dL (13.5-17.5); IMMATURE GRAN ABSOLUTE AUTO 0.07 K/mm3 (0.00-0.10); IMMATURE GRAN PERCENT AUTO 0 % (0-1); LYMPHOCYTES ABSOLUTE AUTO 1.35 K/mm3 (0.84-5.20); LYMPHOCYTES PERCENT AUTO 7 % (21-46); MONOCYTES ABSOLUTE AUTO 0.79 K/mm3 (0.16-1.47); MONOCYTES PERCENT AUTO 4 % (4-13); Mean Corpuscular HGB 32.3 pg (26.0-34.0); Mean Corpuscular HGB Conc 35.5 g/dL (31.5-36.5); Mean Corpuscular Volume 91 fL (80-100); Mean Platelet Volume 9.1 fL (9.1-12.4); NEUTROPHILS ABSOLUTE AUTO 15.96 K/mm3 (1.96-9.15); NEUTROPHILS PERCENT AUTO 87 % (41-73); Platelet Count 408 K/mm3 (150-400); RDW Coefficient Variation 11.9 % (11.7-14.2); RDW Standard Deviation 39.9 fL (35.1-46.3); Red Blood Cell Count 5.35 M/mm3 (4.30-5.90)
[2021-12-22 15:15] LABS: Albumin, Blood 4.1 g/dL (3.4-5.0); Bilirubin, Total 0.8 mg/dL (0.1-1.0); Bun/Creatinine Ratio 7.9 (12.0-20.0); Creatinine, Blood 0.76 mg/dL (0.60-1.20); Globulin, Blood 4.3 g/dL (2.2-4.0); Potassium, Blood 3.6 mmol/L (3.5-5.5); Total Protein, Blood 8.4 g/dL (6.4-8.2)
[2021-12-22] MEDS ORDERED: PROM12.5S PR (19:37)
== END 2021-12-22 19:48 | disposition home or self-care (01) ==
LOC: ER 14:28
PROVIDERS: Emergency Medicine
DX: K86.1 Other chronic pancreatitis (principal); F17.210 Nicotine dependence, cigarettes, uncomplicated; Z91.030 Bee allergy status; Z79.899 Other long term (current) drug therapy; Z79.01 Long term (current) use of anticoagulants
CPT/HCPCS: 80053; 83690; 85025; 96374; 96375; 99284-25; A9270; J1170; J1630; J1885; J2405; J7030

== ENCOUNTER 2021-12-27 05:22 | Emergency (ER) | payer OTHER ==
[~2021-12-27] VITALS: Ht 172.7 cm; Wt 61.2 kg
[~2021-12-27 05:22] MED LIST changes: +PROM12.5S PR
[2021-12-27 06:04] LABS: BASOPHILS ABSOLUTE AUTO 0.05 K/mm3 (0.00-0.23); BASOPHILS PERCENT AUTO 1 % (0-2); EOSINOPHILS ABSOLUTE AUTO 0.15 K/mm3 (0.00-0.68); EOSINOPHILS PERCENT AUTO 1 % (0-6); Hematocrit 43.6 % (37.0-53.0); Hemoglobin 15.3 g/dL (13.5-17.5); IMMATURE GRAN ABSOLUTE AUTO 0.03 K/mm3 (0.00-0.10); IMMATURE GRAN PERCENT AUTO 0 % (0-1); LYMPHOCYTES ABSOLUTE AUTO 1.15 K/mm3 (0.84-5.20); LYMPHOCYTES PERCENT AUTO 11 % (21-46); MONOCYTES ABSOLUTE AUTO 0.53 K/mm3 (0.16-1.47); MONOCYTES PERCENT AUTO 5 % (4-13); Mean Corpuscular HGB 32.3 pg (26.0-34.0); Mean Corpuscular HGB Conc 35.1 g/dL (31.5-36.5); Mean Corpuscular Volume 92 fL (80-100); Mean Platelet Volume 9.3 fL (9.1-12.4); NEUTROPHILS ABSOLUTE AUTO 8.62 K/mm3 (1.96-9.15); NEUTROPHILS PERCENT AUTO 82 % (41-73); Platelet Count 308 K/mm3 (150-400); RDW Coefficient Variation 11.8 % (11.7-14.2); RDW Standard Deviation 39.8 fL (35.1-46.3); Red Blood Cell Count 4.73 M/mm3 (4.30-5.90); White Blood Cell Count 10.53 K/mm3 (4.00-11.30)
[2021-12-27 06:21] LABS: Albumin, Blood 3.5 g/dL (3.4-5.0); Albumin/Globulin Ratio 0.9 (0.8-1.8); Bilirubin, Total 0.5 mg/dL (0.1-1.0); Bun/Creatinine Ratio 3.5 (12.0-20.0); Creatinine, Blood 0.58 mg/dL (0.60-1.20); Globulin, Blood 3.8 g/dL (2.2-4.0); Potassium, Blood 3.6 mmol/L (3.5-5.5); Total Protein, Blood 7.3 g/dL (6.4-8.2)
== END 2021-12-27 14:49 | disposition home or self-care (01) ==
LOC: ER 05:22
PROVIDERS: Student in an Organized Health Care Education/Training Program
DX: K85.90 Acute pancreatitis without necrosis or infection, unspecified (principal); K86.1 Other chronic pancreatitis; F17.210 Nicotine dependence, cigarettes, uncomplicated; F10.11 Alcohol abuse, in remission; Z79.899 Other long term (current) drug therapy; Z79.01 Long term (current) use of anticoagulants
CPT/HCPCS: 36415; 74181; 76705; 80053; 83605; 83690; 85025; A9270; J1170; J1885; J2405; J7120

== ENCOUNTER 2022-01-02 15:33 | Emergency (ER) | payer OTHER | END 2022-01-02 20:30 | disposition home or self-care (01) | LOC: ER 15:33 | DX: K85.90 Acute pancreatitis without necrosis or infection, unspecified (principal); K86.1 Other chronic pancreatitis; F17.210 Nicotine dependence, cigarettes, uncomplicated; Z79.899 Other long term (current) drug therapy; Z79.01 Long term (current) use of anticoagulants; Z91.030 Bee allergy status ==

== ENCOUNTER 2022-02-11 11:40 | Emergency (ER) | payer OTHER ==
[~2022-02-11] VITALS: Ht 175.3 cm; Wt 61.2 kg
[~2022-02-11 11:40] MED LIST changes: +Naltrexone HCl50 MG PO
[2022-02-11 13:11] LABS: BASOPHILS ABSOLUTE AUTO 0.02 K/mm3 (0.00-0.23); BASOPHILS PERCENT AUTO 0 % (0-2); EOSINOPHILS ABSOLUTE AUTO 0.02 K/mm3 (0.00-0.68); EOSINOPHILS PERCENT AUTO 0 % (0-6); Hematocrit 43.8 % (37.0-53.0); Hemoglobin 15.5 g/dL (13.5-17.5); IMMATURE GRAN ABSOLUTE AUTO 0.01 K/mm3 (0.00-0.10); IMMATURE GRAN PERCENT AUTO 0 % (0-1); LYMPHOCYTES ABSOLUTE AUTO 0.79 K/mm3 (0.84-5.20); LYMPHOCYTES PERCENT AUTO 13 % (21-46); MONOCYTES PERCENT AUTO 5 % (4-13); Mean Corpuscular HGB 31.6 pg (26.0-34.0); Mean Corpuscular HGB Conc 35.4 g/dL (31.5-36.5); Mean Corpuscular Volume 89 fL (80-100); Mean Platelet Volume 8.5 fL (9.1-12.4); NEUTROPHILS ABSOLUTE AUTO 4.78 K/mm3 (1.96-9.15); NEUTROPHILS PERCENT AUTO 81 % (41-73); Platelet Count 221 K/mm3 (150-400); RDW Coefficient Variation 15.5 % (11.7-14.2); RDW Standard Deviation 50.4 fL (35.1-46.3); White Blood Cell Count 5.92 K/mm3 (4.00-11.30)
[2022-02-11 13:37] LABS: Albumin, Blood 3.7 g/dL (3.4-5.0); Bilirubin, Total 0.4 mg/dL (0.1-1.0); Bun/Creatinine Ratio 14.9 (12.0-20.0); Calcium, Blood 8.8 mg/dL (8.5-10.1); Creatinine, Blood 0.54 mg/dL (0.60-1.20); Globulin, Blood 3.7 g/dL (2.2-4.0); Potassium, Blood 3.7 mmol/L (3.5-5.5); Total Protein, Blood 7.4 g/dL (6.4-8.2)
[2022-02-11] MEDS ORDERED: Percocet 5-3251 EACH PO (17:19)
== END 2022-02-11 18:01 | disposition home or self-care (01) ==
LOC: ER 11:40
PROVIDERS: Emergency Medicine
DX: K85.90 Acute pancreatitis without necrosis or infection, unspecified (principal); F17.210 Nicotine dependence, cigarettes, uncomplicated; Z91.038 Other insect allergy status; Z79.899 Other long term (current) drug therapy; Z79.01 Long term (current) use of anticoagulants
CPT/HCPCS: 36415; 80053; 83690; 85025; J1170; J1885; J2405; J7030

== ENCOUNTER 2022-02-26 23:28 | Inpatient (IN) | payer OTHER ==
[~2022-02-26] VITALS: Ht 175.3 cm; Wt 57.0 kg
[~2022-02-26 23:28] MED LIST changes: +Lopressor 25 mg25 MG PO; -METOPROLOL TART50 M9 PO
[2022-02-26 23:40] LABS: BASOPHILS ABSOLUTE AUTO 0.11 K/mm3 (0.00-0.23); BASOPHILS PERCENT AUTO 0 % (0-2); EOSINOPHILS PERCENT AUTO 0 % (0-6); Hematocrit 56.8 % (37.0-53.0); Hemoglobin 20.7 g/dL (13.5-17.5); IMMATURE GRAN ABSOLUTE AUTO 0.35 K/mm3 (0.00-0.10); IMMATURE GRAN PERCENT AUTO 1 % (0-1); LYMPHOCYTES ABSOLUTE AUTO 1.65 K/mm3 (0.84-5.20); LYMPHOCYTES PERCENT AUTO 6 % (21-46); MONOCYTES ABSOLUTE AUTO 1.25 K/mm3 (0.16-1.47); MONOCYTES PERCENT AUTO 4 % (4-13); Mean Corpuscular HGB Conc 36.4 g/dL (31.5-36.5); Mean Corpuscular Volume 88 fL (80-100); Mean Platelet Volume 9.5 fL (9.1-12.4); NEUTROPHILS ABSOLUTE AUTO 26.84 K/mm3 (1.96-9.15); NEUTROPHILS PERCENT AUTO 89 % (41-73); NRBC ABSOLUTE 0.02 K/mm3 (0.00-0.02); NRBC Auto 0.1 /100 WBC (0.0-0.2); Platelet Count 505 K/mm3 (150-400); RDW Coefficient Variation 17.4 % (11.7-14.2); Red Blood Cell Count 6.46 M/mm3 (4.30-5.90)
[2022-02-26 23:58] LABS: Albumin/Globulin Ratio 0.8 (0.8-1.8); Bilirubin, Total 1.3 mg/dL (0.1-1.0); Bun/Creatinine Ratio 7.4 (12.0-20.0); Calcium, Blood 11.6 mg/dL (8.5-10.1); Creatinine, Blood 3.93 mg/dL (0.60-1.20); Globulin, Blood 6.1 g/dL (2.2-4.0); Potassium, Blood 2.8 mmol/L (3.5-5.5); Total Protein, Blood 11.1 g/dL (6.4-8.2)
[2022-02-27 01:41] LABS: Magnesium, Blood 2.4 mg/dL (1.6-2.4)
[2022-02-27 02:15] LABS: International Normalized Ratio 1.05
[2022-02-27] MEDS ORDERED: OLAN5 PO (02:24)
[2022-02-27 04:01] LABS: Source, Urine Clean Catch
[2022-02-27 04:03] LABS: Blood, Urine 3+ (Neg); Glucose Qualitative, Urine Neg (Neg); Ketones, Urine 3+ (Neg); Leukocyte Esterase, Urine 2+ (Neg); Nitrite, Urine Pos (Neg); Protein, Urine 3+ (Neg); Specific Gravity, Urine 1.025 (1.003-1.022); Urobilinogen, Urine 2+ (Normal)
--- NOTE | 2022-02-27 04:03 | NUR ---
SUMMARY: PATIENT ADMITTED TODAY FOR ACUTE PANCREATITIS. PATIENT AOX4, TACHYCARDIC ON TELE IN 110S, ELEVATED BP HAD HOME METOPROLOL RESTARTED AND GAVE A DOSE. PATIENT STATED HE HASN'T TAKEN HIS MEDS FOR THE PAST FEW DAYS DUE TO NAUSEA. IV POTASSIUM REPLACED X3 BAGS. IV HYDRATION RUNNING. CALLED PROVIDER TO CLARIFY ORDERS FOR NPO AND IV FLUIDS. PATIENT ALLOWED ICE CHIPS TOLLERATED. PATIENT REQUESTED IV DILAUDID INSTEAD OF FENTANYL, MEDS CHAGED PER MD ORDER. PATIENT VOIDED DARK PAULO URINE, SENT TO LAB FOR UA. EDUCATED PATIENT TO CALL FOR ASSISTANCE WHEN GETTING OUT OF BED. CIWA NEGATIVE AT THIS TIME. WILL CONTINUE TO MONITOR. PATIENT VERBALIZED HE HAS NOT BEEN KEEPING ANYTHING DOWN AND HE USUALLY DRINKS TWO PINTS OF WINE A DAY.
[2022-02-27 04:17] LABS: U Amphetamine Screen Not Detected; U Barbituate Screen Not Detected; U Benzodiazapine Screen Not Detected; U Buprenorphine Screen Not Detected; U Cannabinoids Screen DETECTED; U Cocaine Screen Not Detected; U Methadone Screen Not Detected; U Methamphetamine Screen Not Detected; U Opiates Screen Not Detected; U Oxycodone Screen DETECTED; U Phencyclidine Screen Not Detected; U Propoxyphene Screen Not Detected
[2022-02-27 04:18] LABS: Appearance, Urine Hazy (Clear); Bilirubin, Urine 2+ (Neg); Color, Urine Amber (P-Yellow)
[2022-02-27 04:26] LABS: Amorphous Light (0-Heavy); Bacteria Mod /hpf; Hyaline Casts TNTC /lpf (0-2); Mucus Light (0-Heavy); Red Blood Cells, Urine 0-2 /hpf (0-2); Squamous Epithelial Cells Not Seen /hpf (Few)
--- NOTE | 2022-02-27 08:30 | NUR ---
CINM ASSESSMENT: PT IS REPORTING INCREASED PAIN. HE IS SLIGHTLY ANXIOUS, ROCKING BACK AND FORTH ON BED, LEGS PULLED UP. HE IS RATING PAIN "7/10 AND BUILDING" IN HIS ABD ONLY. DENIES HALLUCINATIONS, NO TREMORS NOTED. PT DENIES THAT HE IS GOING THROUGH WITHDRAWAL. BLOOD PRESSURE IS ELEVATED 181/131, RN PLACED CALL TO DR. SARABIA. DR. SARABIA WITH ORDERS TO INCREASE NORVASC DOSE TO 5MG DAILY. (PT STATES THIS IS HIS NORMAL HOME DOSE, THAT IT WAS INCREASED TO 5MG DAILY AT HOME RECENTLY). ALSO WITH ONE TIME DOSE OF DILAUDID 1MG, GIVE NOW. AFTER ADMINISTERING DILAUDID, PT IS RESTING COMFORTABLY. 11:45: PT CONTINUES TO REST COMFORTABLY AND QUIETLY. RN PERFORMING FREQUENT ROUNDING. PT IS a&O X4, ABLE TO USE CALL LIGHT APPROPRIATELY. PT STATES HE WOULD LIKE UNINTERRUPTED REST, HE IS TIRED AND HASN'T SLEEP IN "DAYS" DUE TO THE PAIN. RN WILL CONTINUE TO MONITOR.
[2022-02-27 09:47] LABS: BASOPHILS ABSOLUTE AUTO 0.04 K/mm3 (0.00-0.23); BASOPHILS PERCENT AUTO 0 % (0-2); EOSINOPHILS ABSOLUTE AUTO 0.01 K/mm3 (0.00-0.68); EOSINOPHILS PERCENT AUTO 0 % (0-6); Hematocrit 45.1 % (37.0-53.0); Hemoglobin 16.3 g/dL (13.5-17.5); IMMATURE GRAN ABSOLUTE AUTO 0.13 K/mm3 (0.00-0.10); IMMATURE GRAN PERCENT AUTO 1 % (0-1); LYMPHOCYTES PERCENT AUTO 9 % (21-46); MONOCYTES ABSOLUTE AUTO 1.47 K/mm3 (0.16-1.47); MONOCYTES PERCENT AUTO 7 % (4-13); Mean Corpuscular HGB 31.9 pg (26.0-34.0); Mean Corpuscular HGB Conc 36.1 g/dL (31.5-36.5); Mean Corpuscular Volume 88 fL (80-100); Mean Platelet Volume 9.5 fL (9.1-12.4); NEUTROPHILS ABSOLUTE AUTO 18.87 K/mm3 (1.96-9.15); NEUTROPHILS PERCENT AUTO 84 % (41-73); Platelet Count 287 K/mm3 (150-400); RDW Coefficient Variation 16.1 % (11.7-14.2); RDW Standard Deviation 51.2 fL (35.1-46.3); Red Blood Cell Count 5.11 M/mm3 (4.30-5.90); White Blood Cell Count 22.52 K/mm3 (4.00-11.30)
[2022-02-27 10:09] LABS: Albumin, Blood 3.4 g/dL (3.4-5.0); Albumin/Globulin Ratio 0.8 (0.8-1.8); Bilirubin, Total 0.9 mg/dL (0.1-1.0); Bun/Creatinine Ratio 16.6 (12.0-20.0); Creatinine, Blood 1.93 mg/dL (0.60-1.20); Globulin, Blood 4.4 g/dL (2.2-4.0); Potassium, Blood 3.9 mmol/L (3.5-5.5); Total Protein, Blood 7.8 g/dL (6.4-8.2)
--- NOTE | 2022-02-27 11:30 | NUR ---
PT'S MOM RETURNS TO HER SON'S BEDSIDE. SHE IS ANXIOUS, WITH MANY QUESTIONS RE HIS PAIN AND HIS CAREPLAN. PER MOM, PT IS "DOUBLED OVER IN PAIN", HOWEVER, PT HAS NOT USED A CALL LIGHT SINCE THE ADDITIONAL DOSE OF DIALUDID THIS AM, AND HAS BEEN QUIETLY RESTING IN BED WITH EACH ROUNDING. CIWA SCORES HAVE DECREASED. PT IS HEARD SPEAKING RUDELY TO HIS MOM IN THE ROOM, HE IS AGITATED AND WANTS TO BE LEFT ALONE. 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 PT DENIES PAIN AND HAS NO COMPLAINTS AT THIS TIME.
--- NOTE | 2022-02-27 12:34 | NUR ---
ROUNDING - PT IS RESTING QUIETLY IN BED. STATES THAT HE WAS ASLEEP BEFORE THE RN ENTERED ROOM. RN ENCOURAGES PT TO TRY TO USE THE URINAL OR CALL FOR ASSISTANCE TO THE BATHROOM.
--- NOTE | 2022-02-27 12:47 | NUR ---
PHONE CALL PLACED TO DR. SARABIA, PT IS CURRENTLY A TWO PACK A DAY SMOKER. HE IS REQUESTING A NICOTINE PATCH. DR. SARABIA WITH ORDERS FOR A 21 MG NICOTINE PATCH, Q 24 HOURS.
--- NOTE | 2022-02-27 16:20 | NUR ---
RN PLACED CALL TO DR. SARABIA TO REPORT PT'S BP - 161/103. PT IS SITTING QUIETLY IN BED, LISTENING TO MUSIC ON THE CELL PHONE. NO SIGNS OF ANXIETY, PAIN OR AGITATION. DR. SARABIA WITH ORDERS TO CONTINUE TO MONITOR BP. IF SYSTOLIC IS GREATER THAN 180, CALL BACK.
--- NOTE | 2022-02-27 17:08 | NUR ---
SHIFT SUMMARY PT HAS BEEN QUIETLY RESTING SINCE 2MG OF DILAUDID IN THE AFTERNOON. HE IS LYING QUIETLY IN BED. HE IS a&O X4, AND HAS BECOME MORE TALKATIVE. HE HAS HAD MULTIPLE ADMISSIONS R/T CHRONIC PANCREATITIS, STATING THAT AT TIMES HE HAS NEEDED COMBINATIONS OF FENTANYL/DILAUDID TO ADEQUATELY MANAGE HIS PAIN. RENAL ULSTRASOUND TODAY SHOWED HEPATIC STEATOSIS AND A BENGIGN RENAL CYST. NO TREMORS, HALLUCINATIONS OR SEIZURE ACTIVITY NOTED ON CIWA ASSESSMENTS. STARTED ROCHEPHIN FOR UTI. ROOM AIR. PT REQUIRES ENCOURAGEMENT/PROMPTING TO USE URINAL. MOM AT BEDSIDE IN THE MORNING. PT HAS REMAINED NPO EXCEPT FOR ICE CHIPS/MEDS THIS SHIFT.
--- NOTE | 2022-02-28 04:19 | NUR ---
SUMMARY: PATIENT DID WELL THIS SHIFT. AOX4. BP ELEVATED AT BEGINING OF SHIFT, GAVE ORAL BP MEDS AND PAIN MEDS. RECHECKED AFTER MEDS GIVEN AND BP LOWERED. PATIENT ON IV FLUIDS. NPO EXCEPT ICE CHIPS. NO VOMITING OVERNIGHT. PATIENT VOIDING IN URINAL. URINE YELLOW IN APPEARANCE. TELE IN PLACE PATIENT HR IN THE 80S, IMPROVED FROM LAST NIGHT. PAIN MANAGED WITH IV DILAUDID PATIENT STATES HIS PAIN IS WELL CONTROLLED UNTIL ABOUT THE LAST HOUR BEFORE NEXT DOSE OF DILAUDID. NO ACUTE EVENTS OVERNGIHT.
--- NOTE | 2022-02-28 17:55 | NUR ---
SHIFT SUMMARY: PATIENT MEDICATED X 2 FOR PAIN. REFUSES IV DILAUDID WANTS PO PAIN MEDS HE KNOWS HE CANNOT BE ON IV MEDS AND GO HOME. PATIENTS GUARDIAN FUNMILAYO CALLED TODAY AND IS REQUESTING LIYAH BE PLACED IN A USP SO HE CAN REMAIN SOBER. THIS RN REFERRED HER TO CARE MANAGEMENT TO ANSWER ANY QUESTIONS SHE MAY HAVE. PATIENT REMAINS IN BED DURING DAY ONLY GETTING UP TO USE BATHROOM OR STAND BY BED TO USE URINAL. VITAL SIGNS ARE NOT WNL. B/P IS ELEVATED THIS OC AND HYDRALAZINE WILL BE ADMIN. PATIENT SAYS HIS PAIN IS MANAGEABLE WITH PO OXYCODONE AND HAS MUCH LESS NAUSEA.
--- NOTE | 2022-03-01 05:04 | NUR ---
Summary: Patient Aox4. CIWA negative. Patient BP elevated gave oral metoprolol and pain meds, rechecked and it was better. Pain managed with oral and IV pain medications. Patient has great urine output, voiding in urinal. IV fluids running patient does not have any complaints of nausea tollerating ice chips well NPO otherwise.
[2022-03-01 05:16] LABS: BASOPHILS ABSOLUTE AUTO 0.03 K/mm3 (0.00-0.23); BASOPHILS PERCENT AUTO 0 % (0-2); EOSINOPHILS ABSOLUTE AUTO 0.04 K/mm3 (0.00-0.68); EOSINOPHILS PERCENT AUTO 0 % (0-6); Hematocrit 41.3 % (37.0-53.0); Hemoglobin 14.3 g/dL (13.5-17.5); IMMATURE GRAN ABSOLUTE AUTO 0.04 K/mm3 (0.00-0.10); IMMATURE GRAN PERCENT AUTO 0 % (0-1); LYMPHOCYTES ABSOLUTE AUTO 1.12 K/mm3 (0.84-5.20); LYMPHOCYTES PERCENT AUTO 11 % (21-46); MONOCYTES ABSOLUTE AUTO 0.99 K/mm3 (0.16-1.47); MONOCYTES PERCENT AUTO 10 % (4-13); Mean Corpuscular HGB 31.2 pg (26.0-34.0); Mean Corpuscular HGB Conc 34.6 g/dL (31.5-36.5); Mean Corpuscular Volume 90 fL (80-100); Mean Platelet Volume 9.6 fL (9.1-12.4); NEUTROPHILS ABSOLUTE AUTO 7.85 K/mm3 (1.96-9.15); NEUTROPHILS PERCENT AUTO 78 % (41-73); Platelet Count 243 K/mm3 (150-400); RDW Coefficient Variation 15.9 % (11.7-14.2); RDW Standard Deviation 51.4 fL (35.1-46.3); Red Blood Cell Count 4.58 M/mm3 (4.30-5.90); White Blood Cell Count 10.07 K/mm3 (4.00-11.30)
[2022-03-01 05:40] LABS: Albumin, Blood 3.1 g/dL (3.4-5.0); Anion Gap 13 mmol/L (6-16); Blood Urea Nitrogen 6 mg/dL (8-24); Bun/Creatinine Ratio 12.8 (12.0-20.0); CO2, Blood 21 mmol/L (21-32); Calcium, Blood 9.1 mg/dL (8.5-10.1); Chloride, Blood 100 mmol/L (98-108); Creatinine, Blood 0.47 mg/dL (0.60-1.20); Glomerular Filtration Rate 139 (60-); Glucose, Blood 71 mg/dL (70-99); Magnesium, Blood 1.9 mg/dL (1.6-2.4); Phosphorus, Blood 1.7 mg/dL (2.5-4.9); Potassium, Blood 3.2 mmol/L (3.5-5.5); Sodium, Blood 134 mmol/L (136-145)
[2022-03-01] MEDS ORDERED: CREON DR 12,001 EACH PO (14:38)
[2022-03-01] MEDS ORDERED: ONE DAILY MUL400 MCG PO (14:38)
--- NOTE | 2022-03-01 15:15 | NUR ---
PATIENT A&OX4. PLEASANT AND COOPERATIVE WITH CARE. USES CALL LIGHT APPROPRIATELY AND ABLE TO ADVOCATES FOR HIS NEEDS. USES URINAL INDEPENDENTLY AT BEDSIDE. PATIENT DIET CHANGED TO FL AT BREAKFAST AND ADVANCE TO SOFT AT LUNCH TIME. PATIENT TOLERATED PO INTAKE WELL. PATIENT DENIES OF ABDOMINAL PAIN. DENIES N/V. PATIENT RECIEVED ALL SCHEDULE MEDICATION THIS SHIFT. VITAL SIGNS REVIEWED. PATIENT DISCHARGE HOME. DISCHARGE INSTRUCTIONS PACKET GIVE TO PATIENT. EDUCATE PATIENT REGARDING ADMITTING DIADNOSIS, SIGN AND SYMPTOMS, TREATMENT, AND NEW PRESCRIBED MEDICATIONS. PATIENT STATED UNDERSTANDING AND NO FURTHER QUESTIONS. RX WAS FAXED TO PATIENT PREFERRED PHARMACY ([facility]). HARD SCRIPT FOR OXYCODONE WAS GIVEN TO PATIENT. PATIENT PERSONAL BELONGINGS WERE SENT HOME WITH THE PATIENT. IV WAS DC'D. PATIENT REQUEST NOT TO BE TRANSPORTED VIA WHEELCHAIR. PATIENT STATES, "I NEED TO WALK, BUT THANK YOU ANYWAY." PATIENT WAS ACCOMPANIED BY MOTHER TO THEIR PRIVATE VEHICLE.
== END 2022-03-01 15:42 | disposition home or self-care (01) | DRG 438 ==
LOC: ER 23:28 → MEDS 02-27 02:05
PROVIDERS: Emergency Medicine; Internal Medicine; ADMIT Internal Medicine
DX: K85.20 Alcohol induced acute pancreatitis without necrosis or infection (principal); K55.059 Acute (reversible) ischemia of intestine, part and extent unspecified; E87.1 Hypo-osmolality and hyponatremia; N17.9 Acute kidney failure, unspecified; E87.29 Other acidosis; R65.10 Systemic inflammatory response syndrome (SIRS) of non-infectious origin without acute organ dysfunction; F31.9 Bipolar disorder, unspecified; K21.9 Gastro-esophageal reflux disease without esophagitis; F17.200 Nicotine dependence, unspecified, uncomplicated; K72.90 Hepatic failure, unspecified without coma; E86.0 Dehydration; E87.6 Hypokalemia; E83.52 Hypercalcemia; E87.8 Other disorders of electrolyte and fluid balance, not elsewhere classified; I10 Essential (primary) hypertension; F10.20 Alcohol dependence, uncomplicated; Z91.038 Other insect allergy status; Z91.048 Other nonmedicinal substance allergy status; Z79.899 Other long term (current) drug therapy
CPT/HCPCS: 36415; 76770; 80053; 80069; 81001; 83605; 83615; 83690; 83735; 85025; 85610; 87086; 96361; 96365; 96368; 96375; 99285-25; A9270; J0360; J0696; J1170; J1644; J2060; J2405; J3010; J3411; J3480; J7030; J7050; J7060

== ENCOUNTER 2023-03-14 10:37 | Emergency (ER) | payer OTHER ==
[~2023-03-14] VITALS: Ht 175.3 cm; Wt 61.2 kg
[~2023-03-14 10:37] MED LIST changes: +CHLO25 PO; +CREON DR 12,001 EACH PO; +ONE DAILY MUL400 MCG PO
[2023-03-14] MEDS ORDERED: ALBU90OI INH (12:42)
[2023-03-14 13:33] VITALS: BP 133/102
== END 2023-03-14 14:02 | disposition home or self-care (01) ==
LOC: ER 10:37
DX: R06.2 Wheezing (principal); R60.0 Localized edema; F17.210 Nicotine dependence, cigarettes, uncomplicated; Z91.030 Bee allergy status; Z79.899 Other long term (current) drug therapy
CPT/HCPCS: 71045; 94640; 94664; 99285-25

== ENCOUNTER 2023-03-18 03:36 | Emergency (ER) | payer OTHER ==
[~2023-03-18] VITALS: Ht 172.7 cm; Wt 70.0 kg
[~2023-03-18 03:36] MED LIST changes: +ALBU90OI INH
[2023-03-18 04:00] VITALS: BP 64/46
[2023-03-18 04:00] LABS: Chloride (POC) 94 mmol/L (98-108); Creatinine (POC) 1.7 mg/dL (0.8-1.3); Glucose (ISTAT POC) 31 mg/dL (70-99); Hemoglobin (POC) 8.8 g/dL (13.5-17.5); Potassium (POC) >9.0 mmol/L (3.5-5.5); Sodium (POC) 118 mmol/L (135-148); Total CO2 (POC) 18 mmol/L (21-32)
[2023-03-18 04:23] LABS: Hematocrit 23.4 % (37.0-53.0); Hemoglobin 7.9 g/dL (13.5-17.5); Mean Corpuscular HGB 35.9 pg (26.0-34.0); Mean Corpuscular HGB Conc 33.8 g/dL (31.5-36.5); Mean Corpuscular Volume 106 fL (80-100); NRBC ABSOLUTE 4.49 K/mm3 (0.00-0.02); NRBC Auto 15.7 /100 WBC (0.0-0.2); RDW Coefficient Variation 16.5 % (11.7-14.2); RDW Standard Deviation 63.1 fL (35.1-46.3); White Blood Cell Count 28.52 K/mm3 (4.00-11.30)
[2023-03-18 04:25] LABS: Platelet Count 86 K/mm3 (150-400)
[2023-03-18 04:32] LABS: International Normalized Ratio 1.95; Prothrombin Time Results 19.7 Sec (9.7-11.5)
[2023-03-18 04:35] LABS: Calcium, Ionized (POC) 1.09 mmol/L (1.10-1.46); Chloride (POC) 94 mmol/L (98-108); Creatinine (POC) 1.6 mg/dL (0.8-1.3); Glucose (ISTAT POC) 191 mg/dL (70-99); Hemoglobin (POC) 6.1 g/dL (13.5-17.5); Potassium (POC) 6.1 mmol/L (3.5-5.5); Sodium (POC) 122 mmol/L (135-148); Total CO2 (POC) 17 mmol/L (21-32)
[2023-03-18 04:46] LABS: Magnesium, Blood 2.8 mg/dL (1.6-2.4)
[2023-03-18 04:55] LABS: Albumin/Globulin Ratio 0.4 (0.8-1.8); Bun/Creatinine Ratio 26.5 (12.0-20.0); Calcium, Blood 9.5 mg/dL (8.5-10.1); Creatinine, Blood 1.66 mg/dL (0.60-1.20); Globulin, Blood 2.3 g/dL (2.2-4.0); Potassium, Blood 8.9 mmol/L (3.5-5.5); Total Protein, Blood 3.3 g/dL (6.4-8.2)
[2023-03-18 05:05] LABS: Base Excess Venous -21.7 mmol/L; Bicarbonate Venous 9.2 mmol/L (24.0-30.0); PCO2 Venous 49.3 mmHg (38-42); pH Blood Venous 6.94 (7.34-7.37)
[2023-03-18 05:51] LABS: BAND PERCENT MAN 6 % (0-8); BASOPHILS ABSOLUTE MAN 0.28 K/mm3 (0.00-0.23); BASOPHILS PERCENT MAN 1 % (0-2); BLASTS PERCENT MAN 5 % (0-0); EOSINOPHILS ABSOLUTE MAN 0.57 K/mm3 (0.00-0.68); EOSINOPHILS PERCENT MAN 2 % (0-6); LYMPHOCYTES % ATYPICAL MANUAL 5 % (0-0); LYMPHOCYTES ABSOLUTE MAN 8.27 K/mm3 (0.84-5.20); LYMPHOCYTES PERCENT MAN 24 % (21-46); METAMYELOCYTE ABSOLUTE MAN 1.71 K/mm3 (0.00-0.00); METAMYELOCYTE PERCENT MAN 6 % (0-0); MONOCYTES ABSOLUTE MAN 0.57 K/mm3 (0.16-1.47); MONOCYTES PERCENT MAN 2 % (4-13); MYELOCYTE ABSOLUTE MAN 1.99 K/mm3 (0.00-0.00); MYELOCYTE PERCENT MAN 7 % (0-0); NEUTROPHILS ABSOLUTE MAN 12.54 K/mm3 (1.96-9.15); SEG NEUTROPHILS PERCENT MAN 38 % (41-73); TOTAL CELLS COUNTED 100
[2023-03-18 05:52] LABS: OTHER CELL PERCENT MAN 4 % (0-0)
== END 2023-03-18 05:30 | disposition short-term general hospital (02) ==
LOC: ER 03:36
PROVIDERS: Student in an Organized Health Care Education/Training Program
DX: I46.9 Cardiac arrest, cause unspecified (principal); K92.2 Gastrointestinal hemorrhage, unspecified; D62 Acute posthemorrhagic anemia; E87.5 Hyperkalemia; E87.20 Acidosis, unspecified; R18.8 Other ascites; D72.829 Elevated white blood cell count, unspecified; R57.8 Other shock; Z91.030 Bee allergy status; Z79.899 Other long term (current) drug therapy; F17.210 Nicotine dependence, cigarettes, uncomplicated; K21.9 Gastro-esophageal reflux disease without esophagitis
CPT/HCPCS: 31500; 36430; 51702; 71045; 80047; 80053; 82803; 83605; 83735; 83880; 84100; 85014; 85025; 85384; 85610; 85730; 86850; 86900; 86901; 86920; 86923; 87040; 87077; 87186; 92950; 94002; 94644; 94664; 96365-59; 96367-59; 96368; 96375-59; 99291-25; 99292; C9113; J0461; J0696; J1815; J1940; J2310; J2354; J2371; J7030; J7050; J7060; P9016; P9059